=== PATIENT | male | born 1960 | race Caucasian/White ===

== ENCOUNTER 2024-11-09 08:43 | Outpatient (CLI) | payer MEDICARE, SELFPAY ==
--- NOTE | ~2024-11-09 | XR_ITS ---
EXAM: XR hand LT min 3V DATE: 11/09/2024 09:02 HISTORY: M18.12 - Unilateral primary osteoarthritis of first carpo... . COMPARISON: None available. FINDINGS: Normal mineralization. No fracture or dislocation. No lytic or blastic lesion. Mild scatte red degenerative changes. No erosion or periosteal change. Soft tissues within normal limits. IMPRESSION: Mild polyarticular osteoarthritis of the hand. Reviewed, dictated and finalized at location K.
--- OUTSIDE RECORDS SUMMARY | 2024-11-09 08:48 | XMS_ITS | Clinical Summary ---
Author Organization [facility] Address [address] [place] [address] Care Team Providers Care Tag Stringer Name Role Phone Unavailable Primary Care Provider Unavailabl e Source Comments PLEASE NOTE, if this patient is a minor, it may be UNLAWFUL to discuss sensitive information that is contained in these records (such as FAMILY PLANNING, MENTAL HEALTH or SUBSTANCE ABUSE) with the minor patient's parent or other person without the patient's specific authorization.[facility] Allergies No known active allergies Medications metoprolol succinate (KAPSPARGO SPRINKLE) 25 mg CSpX Take 1 Capsule by mouth once daily Active budesonide-form oteroL (SYMBICORT) 160-4.5 mcg/actuation inhaler Active fexofenadine-ps eudoephedrine (NISHA-D) 60-120 mg per 12 hr tablet Take 1 Tablet by mouth 2 (two) times daily Active chlorhexidine (PERIDEX) 0.12 % solution 15 mL BRUSH AND FLOSS TEETH, SWISH 15 ML OF THE RINSE IN MOUTH FOR 30 SECONDS TWO TIMES A DAY. SPIT OUT. DO NOT EAT FOR 2-3 HOURS AFTER 09/30/2021 Active aspirin 81 mg chewable tablet CHEW 1 TABLET BY ORAL ROUTE EVERY DAY 09/24/2021 Active atorvastatin (LIPITOR) 10 mg tablet Take 1 Tablet by mouth daily. Active Active Problems Problem Noted Date Diagnosed Date Asthma Social History Tobacco Use Types Packs/Day Years Used Date Smoking Tobacco: Unknown Tobacco Cessation:Counseling Given: Not Answered Social Connections Answer Date Recorded Connectedness 1 04/21/2023 Financial Resource Strain Answer Date R ecorded Financial Resource Strain 1 2023 Stress Answer Date Recorded Stress 1 04/21/2023 Physical Activity Answer Date Recorded Physical Activity 0 04/10/2022 Food Insecurity Answer Date Recorded Food 0 12/22/2023 Transportation Needs Answer Date Record ed Transportation 1 04/21/2023 Housing Stability Answer Date Recorded Housing 1 04/21/2023 Safety and Environment Answer Date Mo rded Safety 0 04/10/2022 Utilities Answer Date Recorded Utilities 0 04/10/2022 Employment Answer Date Recorded Employment 99 04/21/2023 Sex and Gender Information Value Date Recorded Sex Assigned at Male 04/11/2023 7:53 AM PST Legal Sex Male 7:45 PM PDT Gender Identity Male 01/17/2022 7:45 PM PDT Sexual Orientation Straight 01/17/2022 7: 45 PM PDT Last Filed Vital Signs Vital Sign Reading Time Taken Comments Blood Pressure 115/76 04/24/2024 5:09 PM CLOTH CUTTER Pulse 72 04/24/2024 5:09 PM CLOTH CUTTER Temperature - - Respiratory Rate - - Oxygen Saturation - - Inhaled Oxygen Concentration - - Weight - - Height - - Body Mass Index - - Plan of Treatment Health Maintenance Due Date Last Done Comments Anxiety Screening 1959 Dental FMX/Pano 1959 Tobacco Screening 1960 HIV Screening 07/03/1974 CT Colonography 07/03/2004 Colonoscopy 07/03/2004 Colorectal Cancer Screening 07/03/2004 FIT/gFOBT 07/03/2004 Fecal DNA 07/03/2004 Flexible Sigmoidoscopy 07/03/2004 Imm-Zoster, Recombinant (1 of 2) 07/03/2009 Imm-Pneumococcal 50+ (3 of 3 - PCV20 or PCV21) 01/23/2023 01/23/2018, 01/31/2017 Alcohol and Drug Screen 03/28/2024 Depression Annual Screen 03/28/2024 Abdominal Aortic Aneurysm Screening 07/03/2024 Falls Prevention 07/03/2024 [id number] ( season) 2024 11/29/2023, 01/14/2022, 06/24/2021, Additional history exists Dental Periodontal Maintenance 07/25/2024 04/24/2024 , 04/11/2023 Lipid Screening 09/04/2024 09/05/2023 Imm-Influenza (#1) 2024 11/29/2023, 0 12/15/2022, 12/14/2021, Additional history exists Hypertension Screening (#1) 04/24/2025 Dental BW 04/26/2025 04/24/2024, 04/11/2023 Dental Examination 04/26/2025 04/24/2024, 0 10/19/2023, 04/11/2023 Dental Perio Charting 04/26/2025 04/24/2024, 024 Diabetes Screening 09/04/2026 09/05/2023, 0 09/05/2023, 09/02/2022, Additional history exists Imm-DTaP/Tdap/Td (2 - Td or Tdap) 01/04/2029 019 Hepatitis C Screening Completed 10/05/2018 Procedures Procedure Name Priority Date/Time Associated Diagnosis Comments PERIO CHARTING Routine 04/24/2024 12:30 PM CLOTH CUTTER Encounter for dental examination and cleaning without abnormal findings BITEWINGS - FOUR RADIOGRAPHIC IMAGES Routine 04/24/2024 12:30 PM CLOTH CUTTER Encounter for dental examination and cleaning without abnormal findings PERIODONTAL MAINTENANCE Routine 04/24/19 12:30 PM CLOTH CUTTER Encounter for dental examination and cleaning without abnormal findings Full PERIODIC ORAL EVALUATION ESTABLISHED PATIENT Routine 04/24/2024 12:30 PM CLOTH CUTTER Encounter for dental examination and cleaning without abnormal findings from Last 3 Months or Most Recently Relevant to Health Maintenance Insurance [employer] [facility]
--- OUTSIDE RECORDS SUMMARY | 2024-11-09 08:49 | XMS_ITS | Clinical Summary ---
Author Organization [facility] Address [address] [place] [address] Care Team Providers Care Snipper Name Role Phone 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 Dominic NIETO Primary Care Provider [phone] Source Comments This disclosure is being made pursuant to the VFA program and maynot contain all information available regarding this patient.[facility] Allergies No known active allergies Medications atorvastatin (Lipitor) 40 MG tablet Take 1 tablet by mouth daily. 30 tablet 11 1 Active ASPIRIN 81 PO Take by mouth daily. Active albuterol 108 (90 Base) MCG/ACT inhaler Inhale 2 (two) puffs into the lungs every 6 (six) hours as needed for Wheezing. 1 each 11 3 Active ferrous sulfate (RA Iron) 325 (65 FE) MG tablet take 1 tablet by oral route daily Active metoprolol succinate (TOPROL-XL) 50 MG 24 hr tablet Take 50 mg by mouth daily. Active fexofenadine-ps eudoephedrine 180-240 MG PO tablet Take 1 (one) tablet by mouth daily. 30 tablet 2 5 Active Additional Information Patient not taking.Informant: Self, Reported on 09/04/2024 fluticasone furoate-vilante rol (Breo Ellipta) 100-25 MCG/ACT AEPB inhaler Inhale 1 (one) puff into the lungs daily. 60 each 11 5 Active Active Problems Patient Care Coordination No te Formatting of this note migh t be different from the original. BMI done 12/11/19 Problem Noted Date Diagnosed Date Fatty liver disease, nonalcoholic 02/18/2023 Nephrolithiasis 02/18/2023 Spondylolisthesis of lumbosacral region 02/19/20 23 Subluxation of L4-L5 lumbar vertebra 02/18/2023 Seborrheic dermatitis 07/26/2022 AGNIESZKA (obstructive sleep apnea) 10/23/2021 Brown recluse spider bite 08/29/2021 Overview (09/04/2021): behind left knee Elevated coronary artery calcium score 1 Overview (02/11/2021): CT calcium score assessment done on 02/09/21, Dr. Anselmo Ovalle. Results: 1. Left main: 0 2. LAD: 20 3. CX: 0 4. RCA: 0 5. Total: 20 Hypersomnia 07/25/2020 Dyspnea on exertion 06/11/2020 Pure hypercholesterolemia 06/11/2020 Rectus diastasis 01/15/2020 Lumbar disc disease 01/15/2020 History of kidney stones 10/30/2018 Class 3 severe obesity due t o excess calories without serious comorbidity with body mass index (BMI) of 40.0 to 44.9 in adult 10/30/2018 Moderate persistent asthma without complication 10/05/2018 Resolved Problems Problem Noted Date Diagnosed Date Resolved Date Restrictive lung disease 12/11/2019 Neck pain 01/04/2019 12/11/2019 Gross hematuria 10/30/2018 12/11/2019 Encounters Date Type Department Care Team Description 10/05/2024 Patient Message [facility] [address] [place] [address] 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 FNP need new referral 10/01/2024 Orders Only [facility] [address] [address] Santiago Saxena MD 09/12/2024 Documentation [facility] [address] [place] [address] 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 FNP 09/04/2024 8:30 AM CDT Office Visit [facility] U[facility] [address] [place] [address] Jose Latham MD Nocturia (Primary Dx); Nephrolithiasis 09/03/2024 8:00 AM CDT [facility] [address] [place] [address] 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, 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 Trigger middle finger of left hand (Primary Dx); Pure hypercholesterolemi a; AGNIESZKA (obstructive sleep apnea); Medicare welcome exam; Class 3 severe obesity due to excess calories without serious comorbidity with body mass index (BMI) of 40.0 to 44.9 in adult [E66.01, Z68.41]; Moderate persistent asthma without complication; Need for viral immunization 09/03/2024 Travel 09/02/2024 Travel 08/29/2024 Orders Only [facility] [address] [place], [place] [id number] Santiago Saxena MD from Last 3 Months Immunizations Immunization Administration Dates Next Due COVID-19 (MODERNA) mRNA SPIK EVAX ages 12+ 11/29/2023 COVID-19 (MODERNA) mRNA ages 12+ 06/24/2 022,01/21/2021,06/24/2020,2020 COVID-19 (MODERNA-BIVALENT) mRNA ages 12+ (50 mCg/0.5 mL) 01/14/2022 Influenza (FLUARIX) IIV4 11/29/2023 Influenza (FLULAVAL) IIV4, p refilled syringe 12/15/2022,12/11/2019,01/04/2019 Influenza, Inactivated, Triv alent, 3 years and older, single dose syringe 11/29/2023 Influenza, inactivated, quad rivalent, ALL AGES 6 months and older, single dose syringe/vial 12/20/2020 Influenza, unspecified formulation 12/14/2021,,01/04/2019 Pneumococcal Conjugate-13 (P revnar 13) PCV13 01/23/2018 Pneumococcal Conjugate-21 (C apvaxive) PCV21 09/03/2024 Pneumococcal Polysaccharide- 23 (Pneumovax 23) PPSV23 01/31/2017 Tdap 01/04/2019 Tetanus, diphtheria and acel lular pertussis (Adacel)Tdap 01/04/2019 Zoster (Shingrix) RZV 02/20/2019,12/08/2018 Family History Medical History Relation Name Comments Diabetes Father Kidney disease Father Lung disease Mother Diagnosed with terminal fibrosis of lung Other Mother heart issues Relation Name Status Comments Father Mother Social History Tobacco Use Types Packs/Day Years Used Date Smoking Tobacco: Never Smokeless Tobacco: Never Tobacco Cessation:Counseling Given: Not Answered Alcohol Use Standard Drinks/Week Comments Yes 0 (1 standard drink = 0.6 oz pur e alcohol) very rarely Humiliation, Afraid, Rape, and Kick questionnair e Answer Date Recorded Within the last year, have y ou been afraid of your partner or ex-partner? No 09/11/2021 Within the last year, have y ou been humiliated or emotionally abused in other ways by your partner or ex-partner? No Within the last year, have y ou been kicked, hit, slapped, or otherwise physically hurt by your partner or ex-partner? No 09/11/2021 Within the last year, have y ou been raped or forced to have any kind of sexual activity by your partner or ex-partner? No 09/11/2021 AUDIT-C Answer Date Recorded Q1: How often do you have a drink containing alc ohol? Monthly or less 02/18/2023 Q2: How many drinks containi ng alcohol do you have on a typical day when you are drinking? 1 or 2 02/18/2023 Q3: How often do you have si x or more drinks on one occasion? Never 02/18/2023 PHQ-2 Answer Date Recorded PHQ-2 Score 0 08/28/2024 Sex and Gender Information Value Date Recorded Sex Assigned at Not on file Legal Sex Male 11:21 AM CDT Gender Identity Not on file Sexual Orientation Not on file Last Filed Vital Signs Vital Sign Reading Time Taken Comments Blood Pressure 122/80 09/04/2024 8:29 AM CDT Pulse 75 09/04/2024 8:29 AM CDT Temperature 36.3 C (97.3 F) 09/04/2024 8:29 AM CDT Respiratory Rate 17 09/04/2024 8:29 AM CDT Oxygen Saturation 97% 09/04/2024 8:29 AM CDT Inhaled Oxygen Concentration - - Weight 124.3 kg (274 lb) 09/04/2024 8:29 AM CDT Height 170.2 cm (5' 7) 09/04/2024 8:29 AM CDT Body Mass Index 42.91 09/04/2024 8:29 AM CDT Plan of Treatment Upcoming Encounters Date Type Department Care Team (Late st Contact Info) Description 09/03/2025 7:45 AM CDT Appointment [facility] [address] [place] [phone] 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 FNP [address] [place] [phone] 09/05/2025 8:30 AM CDT Appointment [facility] [address] [address] Jose Latham MD [address] [address] 09/09/2025 8:15 AM CDT Appointment [facility] [address] [place] [phone] 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 FNP [address] [place] [address] Health Maintenance Due Date Last Done Comments CT Colonography 1959 Fecal DNA Test 1959 Sigmoidoscopy 1959 FOBT/FIT 1979 COVID-19 Vaccine ( season) 2024 11/29/2023, 01/14/2022, 06/24/2021, Additional history exists Postponed from 07/03/2024 (Patient Declined) Influenza Vaccine (#1) 2024 4, 11/29/2023, 12/15/2022, Additional history exists Hepatitis B Vaccine (1 of 3 - Risk 3-dose series) 03/05/2025 Postponed from 2019 (Patient Declined) Lab-Diabetes Screening 08/27/2025 , 09/05/2023, 09/02/2022, Additional history exists RSV Adult (1 - Risk 60-74 years 1-dose series) 09/03/2025 Postponed from 2019 (Patient Declined) Colonoscopy 09/20/2028 09/21/2023, 11/11/2017 Colorectal Cancer Screening 09/20/2028 Tetanus/Pertussis Vaccine Teen/Adult (3 - Td or Tdap) 01/04/2029 01/04/2019, 01/04/2019 Lab-Cholesterol Screening 08/27/20292024, 09/05/2023, 09/02/2022, Additional history exists Lab-Hepatitis C Screening Completed 10/05/2018 Zoster (Shingles) Vaccine 50+ Completed 02/20/2019, 12/08/2018 Pneumococcal Vaccines 50+ Completed 2024, 01/23/2018, 01/31/2017 HIB Vaccine Aged Out No longer eligi ble based on patient's age to complete this topic HPV Vaccine (9-26yo & Shared Decision 27-45yo) Aged Out No longer eligi ble based on patient's age to complete this topic Hepatitis A Vaccine Aged Out No longe r eligible based on patient's age to complete this topic IPV Vaccine Aged Out No longer eligi ble based on patient's age to complete this topic Meningococcal Conjugate Vaccine Aged Out No longer eligible based on patient's age to complete this topic RSV < 20 Months Aged Out No longer el igible based on patient's age to complete this topic Procedures Procedure Name Priority Date/Time Associated Diagnosis Comments URINALYSIS WITH MICROSCOPIC - CLINIC Routine 09/04/2024 9:14 AM CDT Nocturia PSA Routine 08/27/2024 2:33 PM CDT CBC AND DIFFERENTIAL Routine 08/27/2024 2:33 PM CDT COMPREHENSIVE METABOLIC PANEL Routine 08/27/2024 2:33 PM CDT LIPID PANEL Routine 08/27/2024 2:33 PM CDT TSH Routine 08/27/2024 2:33 PM CDT PROSTATE SPECIFIC ANTIGEN MEDICARE SCREEN Routine 08/27/2024 COMPREHENSIVE METABOLIC PANEL Routine 08/27/2024 CBC AND DIFFERENTIAL Routine 08/27/2024 LIPID PANEL Routine 08/27/2024 TSH Routine 08/27/2024 HM COLONOSCOPY Routine 09/21/2023 HEPATITIS C ANTIBODY Routine 10/05/2018 9:20 AM CDT Need for hepatitis C screening test from Last 3 Months or Most Recently Relevant to Health Maintenance Results * URINALYSIS WITH MICROSCOPIC - CLINIC (09/04/2024 9:14 AM CDT) Color, UA Yellow Clarity or appearance, UA Clear Glucose, UA Negative mg/dL Bilirubin, UA Negative Ketones, UA Negative Specific Kermit,UA 1.025 AMB BLOOD URINE, UA Negative Negative pH, UA 5.5 Protein, UA Negative Negative mg/dL Urobilinogen, UA <2 Nitrite, UA Negative Negative Leukocyte Esterase, UA Negative Negative Bacteria, URINE MICROSCOPIC None Seen Squamous EPITHELIAL CELLS,URINE MICROSCOPIC None Seen RENAL EPITHELIAL CELLS, URINE MICROSCOPIC None Seen TRANSITIONAL EPITHELIAL CELLS, URINE MICROSCOPIC None Seen GRANULAR CASTS, URINE MICROSCOPIC None Seen WAXY CASTS, URINE MICROSCOPIC None Seen FATTY CASTS, URINE MICROSCOPIC None Seen AMB BROAD CASTS, URINE MICROSCOPIC 0 CELLULAR CASTS, URINE MICROSCOPIC None Seen RBC CASTS, URINE MICROSCOPIC None Seen WBC CASTS, URINE MICROSCOPIC None Seen Hyline Cast, Urine Microscopic None Seen Crystals, Urine Microscopic None Seen Sperm, Urine Microscopic None Seen TRICHOMONIASIS, Urine Microscopic None Seen Yeast, URINE MICROSCOPIC None Seen RBC, URINE MICROSCOPIC 0 WBC, URINE MICROSCOPIC 0 Urine URINE SPECIMEN FROM URINARY BLADDER / Unknown 09/04/2024 9:14 AM CDT us Jose Latham MD POINT OF CARE TEST ORDERAB LES Final Result * CBC and differential (08/27/2024 2:33 PM CDT) Only the most recent of2 resultswithin the time period is included. Blood BLOOD SPECIMEN / Unknown us Not In System Provider LAB BLOOD ORDERABLES Deepa l Result * TSH (08/27/2024 2:33 PM CDT) Only the most recent of2 resultswithin the time period is included. Blood BLOOD SPECIMEN / Unknown us Not In System Provider LAB BLOOD ORDERABLES Deepa l Result * PSA (08/27/2024 2:33 PM CDT) Blood us Not In System Provider LAB BLOOD ORDERABLES Deepa l Result * Lipid panel (08/27/2024 2:33 PM CDT) Only the most recent of2 resultswithin the time period is included. Blood us Not In System Provider LAB BLOOD ORDERABLES Deepa l Result * Comprehensive metabolic panel (08/27/2024 2:33 PM CDT) Only the most recent of2 resultswithin the time period is included. Blood us Not In System Provider LAB BLOOD ORDERABLES Deepa l Result * PSA Medicare Screen (08/27/2024) PSA 0.7 Blood 08/27/2024 us Not In System Provider LAB BLOOD ORDERABLES Deepa l Result * HM Colonoscopy (09/21/2023) HM Colonoscopy see scanned report. 09/21/2023 us Not In System Provider HEALTH MAINTENANCE Final Result * Hepatitis C antibody (10/05/2018 9:20 AM CDT) Pathologist [facility] Hep C Ab NONREACTIVE NR 10/06/2018 6:27 AM CDT [facility] Comment: Interpretion: Antibodies to HCV not detected. Does not exclude early acute HCV infection. This test was performed by the Hepatitis C Antibody IgG Assay by [employer]. Serum specimen (specimen) 10/05/2018 9:20 AM CDT 10/05/2018 12:58 PM CDT us Patricia VARGASP LAB BLOOD ORDERABLES Fi nal Result [address] from Last 3 Months or Most Recently Relevant to Health Maintenance Insurance MEDICARE Care Teams Snipper Relationship Specialty Start Date End Date 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 FNP [address] [place] [id number] PCP - General Family Medicine 08/30/23
== END 2024-11-09 08:44 | disposition home or self-care (01) ==
PROVIDERS: Visit Provider Plastic Surgery
DX: M18.12 Unilateral primary osteoarthritis of first carpometacarpal joint, left hand (principal)
CPT/HCPCS: 73130